=== PATIENT | male | born 1975 | race African-American/Black ===

== ENCOUNTER 2018-10-21 21:34 | Emergency (ER) | payer SELFPAY ==
[~2018-10-21] VITALS: Ht 175.3 cm; Wt 81.0 kg
[2018-10-21 23:30] VITALS: BP 117/70
== END 2018-10-22 02:29 | disposition home or self-care (01) ==
LOC: ER 21:34
DX: R06.02 Shortness of breath (principal); J45.909 Unspecified asthma, uncomplicated; Z88.6 Allergy status to analgesic agent
CPT/HCPCS: 93005; 99283

== ENCOUNTER 2018-10-22 06:57 | Emergency (ER) | payer MEDICAID ==
[~2018-10-22] VITALS: Ht 167.6 cm; Wt 68.0 kg
[2018-10-22] MEDS ORDERED: IPRATROPIUM BROMIDE (0.02%) 0.5MG/2.5ML NEB HHN STA (07:40)
[2018-10-22] MEDS ORDERED: ALBUTEROL (0.083%) 2.5MG/3ML NEB HHN STA (07:40)
[2018-10-22] MEDS ORDERED: PREDNISONE 20MG TABLET PO STA (07:40)
[2018-10-22 11:30] VITALS: BP 120/79
== END 2018-10-22 11:35 | disposition home or self-care (01) ==
LOC: ER 06:57
DX: J45.901 Unspecified asthma with (acute) exacerbation (principal); F17.200 Nicotine dependence, unspecified, uncomplicated; F12.10 Cannabis abuse, uncomplicated; Z88.6 Allergy status to analgesic agent
CPT/HCPCS: 71045; 94644; 99285; J7512; J7611; Z7610

== ENCOUNTER 2022-10-17 19:15 | Inpatient (IN) | payer MEDICAID ==
[~2022-10-17] VITALS: Ht 172.7 cm; Wt 62.6 kg
[2022-10-17 19:17] VITALS: O2SAT 99
[2022-10-17] MEDS ORDERED: ONDANSETRON HCL 4MG TABLET PO ONE (21:45)
[2022-10-17 23:08] LABS: CHLORIDE 106 mEq/L (98-107); INDEX HEMOLYSI 1 (1-3); INDEX ICTERIC 1 (1-4); INDEX LIPEMIC 1 (1-3); POTASSIUM 3.8 mEq/L (3.5-5.1); SODIUM 134 mEq/L (136-145)
[2022-10-17 23:10] LABS: HEMATOCRIT. 38.9 % (42.0-52.0); HEMOGLOBIN. 12.5 g/dL (14.0-18.0); MEAN CORPUSCULAR HEMOGLOBIN 29.1 pg (28.0-32.0); MEAN CORPUSCULAR HGB CONC 32.1 g/dL (31.0-37.0); MEAN CORPUSCULAR VOLUME 90.9 fL (80.0-94.0); MEAN PLATELET VOLUME 9.4 fl (7.4-10.4); PLATELET 203 x1000/uL (130-400); RED BLOOD CELL COUNT 4.28 mill/uL (4.7-6.1); RED CELL DISTRIBUTION WIDTH 14.6 % (11.6-14.6); WHITE BLOOD COUNT 6.2 x1000/uL (4.5-11.0)
[2022-10-17 23:14] LABS: DIFFERENTIAL COMMENT 1
[2022-10-17 23:15] LABS: ALANINE AMINOTRANSFERASE 27 IU/L (13-61); ALBUMIN 3.3 g/dL (3.4-5.0); ASPARTATE AMINOTRANSFERASE 14 IU/L (15-37); BILIRUBIN TOTAL 0.5 mg/dL (0.1-1.0); CALCIUM 8.7 mg/dL (8.5-10.1); CARBON DIOXIDE 25 mEq/L (21-32); CREATININE 0.6 mg/dL (0.6-1.3); GLUCOSE 97 mg/dL (70-105); PROTEIN TOTAL 7.5 g/dL (6.0-8.3); UREA NITROGEN BLOOD 6 mg/dL (7-21)
[2022-10-17 23:43] LABS: PLATELET ESTIMATE NORMAL
[2022-10-17] MEDS ORDERED: DICY10CA88 MT (23:52)
[2022-10-17] MEDS ORDERED: ONDA4TAB50 MT (23:52)
[2022-10-18] MEDS ORDERED: DICYCLOMINE HCL 10MG/ML 2ML VIAL IM ONE
[2022-10-18] MEDS: PIPERACILLIN/TAZOBACTAM 3.375GM/50ML PREMIX IV NR ×3 (01:30→05:50)
[2022-10-18] MEDS ORDERED: SODIUM CHLORIDE 0.9% 1000ML BAG (SEPSIS BOLUS) IV ONE (01:30)
[2022-10-18 05:10] LABS: LACTIC ACID 3.2 mmol/L (0.4-2.0)
[2022-10-18] MEDS ORDERED: IPRATROPIUM/ALBUTEROL 0.5-3(2.5)MG/3ML NEB HHN PRN (08:00)
[2022-10-18] MEDS ORDERED: GUAIFENESIN 200MG/10ML SUGAR FREE UDC PO PRN (08:00)
[2022-10-18] MEDS ORDERED: DIPHENHYDRAMINE 50MG/ML VIAL IV PRN (08:00)
[2022-10-18] MEDS ORDERED: ONDANSETRON HCL 4MG/2ML INJ IV PRN (08:00)
[2022-10-18] MEDS ORDERED: ACETAMINOPHEN 325MG TABLET PO PRN (08:00)
[2022-10-18] MEDS ORDERED: MAGNESIUM/ALUMINUM HYDROXIDE/SIMETHICONE 30ML UDC PO PRN (09:00)
[2022-10-18] MEDS ORDERED: DOCUSATE SODIUM 100MG CAPSULE PO PRN (09:00)
[2022-10-18 10:15] VITALS: BP 111/73; PULSE 90; RESP 18; TEMP 98.8
[2022-10-18 12:00] VITALS: BP 96/43; RESP 18; TEMP 98.7
[2022-10-18] MEDS: SODIUM CHLORIDE 0.9% 1,000 ML IV SCH (13:50)
[2022-10-18] MEDS: PANTOPRAZOLE SODIUM 40 MG/VIAL IV SCH (13:50)
[2022-10-18 14:38] LABS: INDEX HEMOLYSI 1 (1-3); INDEX ICTERIC 1 (1-4); INDEX LIPEMIC 1 (1-3)
[2022-10-18 14:42] LABS: IRON 16 ug/dL (50-175); TOTAL IRON BINDING CAPACITY 241 ug/dL (250-450)
[2022-10-18 16:00] VITALS: BP 112/57; PULSE 79; RESP 18; TEMP 99.8
[2022-10-18 16:57] LABS: INDEX HEMOLYSI 1 (1-3)
[2022-10-18 17:27] LABS: VITAMIN B12 SERUM 228 pg/mL (211-911)
[2022-10-18 17:29] LABS: HEPATITIS B SURFACE ANTIGEN NEGATIVE
[2022-10-18 17:56] LABS: HEPATITIS C VIR.AB 0.11 INDEXVAL (0.00-0.80)
[2022-10-18 17:57] LABS: HEPATITIS B CORE AB IGM NEGATIVE
[2022-10-18 17:59] LABS: HEPATITIS A AB IGM NEGATIVE (NEGATIVE)
[2022-10-18 20:00] VITALS: BP 119/66; PULSE 83; RESP 16; TEMP 98.1
[2022-10-19] VITALS: BP 116/59; PULSE 76; RESP 15; TEMP 97.9
[2022-10-19] MEDS: SODIUM CHLORIDE 0.9% 1,000 ML IV SCH (00:16)
[2022-10-19 07:58] LABS: HEMATOCRIT. 35.6 % (42.0-52.0); MEAN CORPUSCULAR HEMOGLOBIN 29.8 pg (28.0-32.0); MEAN CORPUSCULAR HGB CONC 33.7 g/dL (31.0-37.0); MEAN CORPUSCULAR VOLUME 88.6 fL (80.0-94.0); MEAN PLATELET VOLUME 9.6 fl (7.4-10.4); PLATELET 186 x1000/uL (130-400); RED BLOOD CELL COUNT 4.01 mill/uL (4.7-6.1); RED CELL DISTRIBUTION WIDTH 14.5 % (11.6-14.6); WHITE BLOOD COUNT 4.6 x1000/uL (4.5-11.0)
[2022-10-19 08:00] VITALS: BP 119/63; PULSE 89; RESP 18; TEMP 98.6
[2022-10-19 08:07] LABS: DIFFERENTIAL COMMENT 1
[2022-10-19 08:29] LABS: CHLORIDE 107 mEq/L (98-107); INDEX HEMOLYSI 1 (1-3); INDEX ICTERIC 1 (1-4); INDEX LIPEMIC 1 (1-3); POTASSIUM 3.3 mEq/L (3.5-5.1); SODIUM 137 mEq/L (136-145)
[2022-10-19 08:45] LABS: ALANINE AMINOTRANSFERASE 16 IU/L (13-61); ALBUMIN 2.5 g/dL (3.4-5.0); ASPARTATE AMINOTRANSFERASE 17 IU/L (15-37); BILIRUBIN TOTAL 0.3 mg/dL (0.1-1.0); CALCIUM 8.1 mg/dL (8.5-10.1); CARBON DIOXIDE 24 mEq/L (21-32); CHOLESTEROL 107 mg/dL (<200); CREATININE 0.6 mg/dL (0.6-1.3); GLUCOSE 72 mg/dL (70-105); HDL CHOLESTEROL 37 mg/dL (40-59); LDL CHOLESTEROL 65 mg/dL (5-100); PROTEIN TOTAL 6.1 g/dL (6.0-8.3); T4 FREE 1.06 ng/dL (0.76-1.46); THYROID STIMULATING HORMONE 0.71 uIU/mL (0.36-3.74); TRIGLYCERIDE 69 mg/dL (0-150); UREA NITROGEN BLOOD 6 mg/dL (7-21)
[2022-10-19] MEDS: PANTOPRAZOLE SODIUM 40 MG/VIAL IV SCH (09:00)
[2022-10-19 13:55] LABS: PLATELET ESTIMATE NORMAL
[2022-10-19] MEDS ORDERED: POTASSIUM CHLORIDE 20MEQ TABLET SR PO NR (14:00)
== END 2022-10-19 13:39 | disposition left against medical advice (07) | DRG 249 ==
LOC: ER 20:47 → MICUSO 10-18 03:29 → 6EST 10-18 08:45
PROVIDERS: ADMIT Internal Medicine; ATTEND Internal Medicine
DX: K52.9 Noninfective gastroenteritis and colitis, unspecified (principal); E87.20 Acidosis, unspecified; E44.1 Mild protein-calorie malnutrition; E87.1 Hypo-osmolality and hyponatremia; D64.9 Anemia, unspecified; Z53.29 Procedure and treatment not carried out because of patient's decision for other reasons; I10 Essential (primary) hypertension; J44.9 Chronic obstructive pulmonary disease, unspecified; R79.89 Other specified abnormal findings of blood chemistry; F17.210 Nicotine dependence, cigarettes, uncomplicated; Z59.00 Homelessness unspecified; Z88.6 Allergy status to analgesic agent; Z68.21 Body mass index [BMI] 21.0-21.9, adult
CPT/HCPCS: 36415; 71045; 74176; 80053; 80061; 82270; 82607; 82746; 83540; 83550; 83605; 84145; 84439; 84443; 85025; 85379; 86705; 86709; 86803; 87015; 87045; 87340; 87427; 87449; 87493; 93005; 99285; C9113; J0500; J2543; J7030; Q0162

== ENCOUNTER 2024-04-11 01:40 | Emergency (ER) | payer MEDICAID ==
[~2024-04-11] VITALS: Ht 175.3 cm; Wt 58.2 kg
[~2024-04-11 01:40] MED LIST: DICY-18 MT; ONDA4TAB50 MT
[2024-04-11 01:49] VITALS: O2SAT 98
[2024-04-11 02:03] VITALS: BP 128/70; TEMP 36.4
[2024-04-11 02:50] LABS: CHLORIDE 107 mEq/L (98-107); POTASSIUM 4.1 mEq/L (3.5-5.1); SODIUM 142 mEq/L (136-145)
[2024-04-11 02:51] LABS: CARBON DIOXIDE 30 mEq/L (21-32)
[2024-04-11 02:52] LABS: CALCIUM 9.2 mg/dL (8.7-10.4)
[2024-04-11 02:56] LABS: CREATININE 0.7 mg/dL (0.6-1.3); GLUCOSE 100 mg/dL (70-105)
[2024-04-11 02:57] LABS: UREA NITROGEN BLOOD 9 mg/dL (9-23)
[2024-04-11] MEDS: METHYLPREDNISOLONE 40MG/ML INJ IV ONE (03:00)
[2024-04-11] MEDS ORDERED: METHYLPREDNISOLONE SOD SUCC 125MG/2ML (ACT-O-VIAL) IV NR (03:45)
[2024-04-11] MEDS ORDERED: PRED5TAB48 MT (05:23)
[2024-04-11] MEDS ORDERED: ALBU18HF2 IH (05:23)
[2024-04-11] MEDS: METHYLPREDNISOLONE SOD SUCC 125MG/2ML (ACT-O-VIAL) IM NR (05:26)
[2024-04-11] MEDS: IPRATROPIUM/ALBUTEROL 0.5-3(2.5)MG/3ML NEB HHN ONE (05:37)
[2024-04-11] MEDS: IPRATROPIUM/ALBUTEROL 0.5-3(2.5)MG/3ML NEB HHN NR (05:38)
[2024-04-11 05:44] VITALS: PULSE 77; RESP 20; O2SAT 99
[2024-04-11 05:56] LABS: BASOPHILS % 0.6 % (0.0-2.0); EOSINOPHILS % 6.5 % (0.0-5.0); HEMATOCRIT. 38.5 % (42.0-52.0); HEMOGLOBIN. 12.6 g/dL (14.0-18.0); MEAN CORPUSCULAR HGB CONC 32.8 g/dL (31.0-37.0); MEAN CORPUSCULAR VOLUME 91.5 fL (80.0-94.0); MEAN PLATELET VOLUME 9.7 fl (7.4-10.4); MONOCYTES % 9.4 % (2.0-8.0); NEUTROPHILS % 48.5 % (40.0-76.0); PLATELET 180 x1000/uL (130-400); RED BLOOD CELL COUNT 4.21 mill/uL (4.7-6.1); RED CELL DISTRIBUTION WIDTH 14.3 % (11.6-14.6)
== END 2024-04-11 06:26 | disposition home or self-care (01) ==
LOC: ER 01:40
DX: J45.901 Unspecified asthma with (acute) exacerbation (principal); D72.819 Decreased white blood cell count, unspecified; F12.90 Cannabis use, unspecified, uncomplicated; J44.1 Chronic obstructive pulmonary disease with (acute) exacerbation; Z79.52 Long term (current) use of systemic steroids; Z88.6 Allergy status to analgesic agent
CPT/HCPCS: 80048; 85025; 36415; 71045; 94640; 96372; 99284; J2920; J2919; Z7610 ×2

== ENCOUNTER 2024-08-15 04:10 | Emergency (ER) | payer MEDICAID ==
[~2024-08-15] VITALS: Ht 175.3 cm; Wt 66.0 kg
[~2024-08-15 04:10] MED LIST changes: +ALBU18HF2 IH; +PRED5TAB48 MT
[2024-08-15 04:21] VITALS: O2SAT 98
[2024-08-15 05:25] LABS: BASOPHILS % 0.5 % (0.0-2.0); EOSINOPHILS % 4.5 % (0.0-5.0); HEMATOCRIT. 37.9 % (42.0-52.0); HEMOGLOBIN. 12.3 g/dL (14.0-18.0); LYMPHOCYTES % 34.4 % (20.0-50.0); MEAN PLATELET VOLUME 9.2 fl (7.4-10.4); MONOCYTES % 11.5 % (2.0-8.0); NEUTROPHILS % 49.1 % (40.0-76.0); PLATELET 245 x1000/uL (130-400); RED BLOOD CELL COUNT 4.25 mill/uL (4.7-6.1); RED CELL DISTRIBUTION WIDTH 14.5 % (11.6-14.6)
[2024-08-15 05:40] LABS: CREATININE 0.7 mg/dL (0.6-1.3); UREA NITROGEN BLOOD 12 mg/dL (9-23)
[2024-08-15 05:41] LABS: TROPONIN I HIGH SENSITIVITY < 4 ng/L (3.0-53)
[2024-08-15] MEDS: PREDNISONE 20MG TABLET PO STA (06:10)
[2024-08-15 06:45] VITALS: PULSE 88; RESP 20
[2024-08-15] MEDS: IPRATROPIUM BROMIDE (0.02%) 0.5MG/2.5ML NEB HHN STA (06:48)
[2024-08-15] MEDS: ALBUTEROL (0.083%) 2.5MG/3ML NEB HHN STA (06:48)
[2024-08-15 07:17] VITALS: TEMP 36.7
[2024-08-15] MEDS ORDERED: ALBU90AE INH (07:45)
[2024-08-15] MEDS ORDERED: P50 PO (07:45)
[2024-08-15 07:53] VITALS: BP 111/60; PULSE 84; RESP 12; O2SAT 95
== END 2024-08-15 08:24 | disposition home or self-care (01) ==
LOC: ER 04:10
DX: J45.901 Unspecified asthma with (acute) exacerbation (principal); J44.1 Chronic obstructive pulmonary disease with (acute) exacerbation; F12.90 Cannabis use, unspecified, uncomplicated; Z79.52 Long term (current) use of systemic steroids; Z88.6 Allergy status to analgesic agent
CPT/HCPCS: 80048; 85025; 84484; 36415; 71045; 94640; 93005; 99285; J7512; Z7610 ×3; 94664